=== PATIENT | male | born 1945 | race Caucasian/White ===

== ENCOUNTER 2016-11-27 19:24 | Observation (INO) | payer OTHER ==
[~2016-11-27] VITALS: Ht 157.5 cm; Wt 95.6 kg
[~2016-11-27 19:24] MED LIST: ADULT LOW DOSE81 M1 PO; ATENOLOL25 MG PO; DIOVAN80 MG PO; FOLTX TABLET1 EACH PO; INDOCIN50 MG PO; LASIX40 MG PO; LEXAPRO10 MG PO; NEXIUM40 MG PO; PLAVIX75 MG PO; ZONEGRAN100 MG PO
[2016-11-27 19:55] LABS: EOSINOPHIL (%) 1.4 % (0-5); EOSINOPHIL COUNT 0.1 K/uL (0-0.3); HEMATOCRIT 39.9 % (38.0-50.0); IMMATURE GRANULOCYTE (%) 0.2 % (0.0-0.7); INSTRUMENT ABS NEUTROPHIL CT 6.4 K/uL; LYMPHOCYTE COUNT 1.9 K/uL (1.0-2.8); MCH 29.4 PG (29.0-34.0); MCHC 34.8 G/DL (30.0-36.0); MCV 84.5 FL (86-99); MEAN PLAT.VOLUME 8.8 uM^3 (9.0-12.4); MONOCYTE (%) 4.5 % (3-12); MONOCYTE COUNT 0.4 K/uL (0-0.8); NEUTROPHIL (%) 72.6 % (45-76); NEUTROPHIL COUNT 6.4 K/uL (1.8-6.4); PLATELET COUNT 164 K/uL (156-360); RBC DIS.WIDTH-CV 13.1 % (11.8-14.6); RED BLOOD COUNT 4.72 M/uL (4.00-5.50); WHITE BLOOD COUNT 8.9 K/uL (4.1-10.2)
[2016-11-27 20:18] LABS: CHLORIDE 105 mEq/L (99-109); POTASSIUM 3.8 mEq/L (3.7-5.4); SODIUM 138 mEq/L (136-147)
[2016-11-27 20:19] LABS: GLUCOSE 163 mg/dL (70-99)
[2016-11-27 20:20] LABS: TROP-I INTERPRETATION NEGATIVE; TROPONIN-I 0.02 ng/mL (0.0-0.30)
[2016-11-27 20:21] LABS: ANION GAP 8 MEQ/L (2-14)
[2016-11-27 20:23] LABS: GFR ESTIMATE (CALCULATED) > 59 mL/min/
[2016-11-27 20:24] LABS: UREA NITROGEN (BUN) 15 mg/dL (9-23)
[2016-11-27] MEDS ORDERED: IMDUR60 MG PO (21:28)
[2016-11-27] MEDS ORDERED: COZAAR50 MG PO (21:28)
[2016-11-27] MEDS ORDERED: CRESTOR20 MG PO (21:28)
[2016-11-27] MEDS ORDERED: OMEGA-3 KRILL1 EAC1 PO (21:29)
[2016-11-27] MEDS ORDERED: METFORMIN HCL500 MG PO (21:29)
[2016-11-27] MEDS ORDERED: ALLOPURINOL100 MG PO (21:29)
[2016-11-27] MEDS ORDERED: JARDIANCE10 MG PO (21:30)
[2016-11-27 22:31] LABS: TOTAL BILIRUBIN 0.5 mg/dL (0.0-1.0)
[2016-11-27 22:32] LABS: ALKALINE PHOSPHATASE 48 IU/L (3-129)
[2016-11-27 22:35] LABS: DIRECT BILIRUBIN 0.2 mg/dL (0.0-0.3)
[2016-11-27 22:36] LABS: LIPASE 27 U/L (1.0-51.0)
[2016-11-27 23:57] VITALS: BP 122/64
[2016-11-28 03:11] LABS: MCH 29.2 PG (29.0-34.0); MCHC 34.5 G/DL (30.0-36.0); MCV 84.6 FL (86-99); MEAN PLAT.VOLUME 9.1 uM^3 (9.0-12.4); PLATELET COUNT 153 K/uL (156-360); RBC DIS.WIDTH-CV 13.1 % (11.8-14.6); RBC DIS.WIDTH-SD 40.6 % (39-53); RED BLOOD COUNT 4.49 M/uL (4.00-5.50); WHITE BLOOD COUNT 7.6 K/uL (4.1-10.2)
[2016-11-28 03:15] VITALS: BP 98/52
[2016-11-28 03:22] LABS: CHLORIDE 107 mEq/L (99-109); POTASSIUM 3.6 mEq/L (3.7-5.4); SODIUM 140 mEq/L (136-147)
[2016-11-28 03:23] LABS: GLUCOSE 161 mg/dL (70-99)
[2016-11-28 03:25] LABS: ANION GAP 8 MEQ/L (2-14)
[2016-11-28 03:27] LABS: GFR ESTIMATE (CALCULATED) > 59 mL/min/
[2016-11-28 03:28] LABS: UREA NITROGEN (BUN) 13 mg/dL (9-23)
[2016-11-28 03:33] LABS: TROP-I INTERPRETATION NEGATIVE; TROPONIN-I 0.02 ng/mL (0.0-0.30)
[2016-11-28 08:30] VITALS: BP 142/67
[2016-11-28 08:39] LABS: POINT-OF-CARE METER ID UU13113831
[2016-11-28 10:28] LABS: TROP-I INTERPRETATION NEGATIVE; TROPONIN-I 0.01 ng/mL (0.0-0.30)
[2016-11-28 11:39] LABS: POINT-OF-CARE METER ID UU13113700
[2016-11-28 12:04] VITALS: BP 90/49
== END 2016-11-28 14:10 | disposition home or self-care (01) ==
LOC: EME → EDBD 19:24 → 5WEST 21:47 → EDOF 21:47 → ENRESERV 21:49 → CANRESERV 22:03 → ENRESERV 22:03 → 5WEST 23:15
PROVIDERS: Emergency Medicine; Hospitalist
DX: I20.9 Angina pectoris, unspecified (principal); I10 Essential (primary) hypertension; E78.5 Hyperlipidemia, unspecified; I25.10 Atherosclerotic heart disease of native coronary artery without angina pectoris; Z95.1 Presence of aortocoronary bypass graft; Z95.5 Presence of coronary angioplasty implant and graft; I45.10 Unspecified right bundle-branch block; I25.5 Ischemic cardiomyopathy; E11.65 Type 2 diabetes mellitus with hyperglycemia; E66.9 Obesity, unspecified; Z68.38 Body mass index [BMI] 38.0-38.9, adult; Z87.11 Personal history of peptic ulcer disease; Z87.891 Personal history of nicotine dependence; Z82.49 Family history of ischemic heart disease and other diseases of the circulatory system; Z80.0 Family history of malignant neoplasm of digestive organs; Z80.3 Family history of malignant neoplasm of breast
CPT/HCPCS: 71010; 71275; 80048; 80076; 82948; 83690; 84484; 85025; 85027; 85379; 93005; 93970; 99281; 99285; G0378; J1650; J1815; J3010; J7040

== ENCOUNTER 2017-01-15 15:22 | Emergency (ER) | payer OTHER ==
[~2017-01-15] VITALS: Ht 157.5 cm; Wt 89.3 kg
[~2017-01-15 15:22] MED LIST changes: +ALLOPURINOL100 MG PO; +COZAAR50 MG PO; +CRESTOR20 MG PO; +IMDUR60 MG PO; +JARDIANCE10 MG PO; +METFORMIN HCL500 MG PO; +OMEGA-3 KRILL1 EAC1 PO
[2017-01-15 16:18] LABS: EOSINOPHIL (%) 1.7 % (0-5); EOSINOPHIL COUNT 0.1 K/uL (0-0.3); HEMATOCRIT 40.5 % (38.0-50.0); IMMATURE GRANULOCYTE (%) 0.4 % (0.0-0.7); INSTRUMENT ABS NEUTROPHIL CT 6.1 K/uL; LYMPHOCYTE COUNT 1.4 K/uL (1.0-2.8); MCH 29.4 PG (29.0-34.0); MCHC 34.1 G/DL (30.0-36.0); MCV 86.2 FL (86-99); MEAN PLAT.VOLUME 8.8 uM^3 (9.0-12.4); MONOCYTE (%) 8.1 % (3-12); MONOCYTE COUNT 0.7 K/uL (0-0.8); NEUTROPHIL (%) 73.2 % (45-76); NEUTROPHIL COUNT 6.1 K/uL (1.8-6.4); PLATELET COUNT 164 K/uL (156-360); RBC DIS.WIDTH-CV 13.2 % (11.8-14.6); RBC DIS.WIDTH-SD 41.5 % (39-53); WHITE BLOOD COUNT 8.3 K/uL (4.1-10.2)
[2017-01-15 16:23] LABS: INTER. NORMALIZED RATIO 1.1; PROTHROMBIN TIME 12.2 SEC (10.2-12.9)
[2017-01-15 16:25] LABS: CHLORIDE 108 mEq/L (99-109); POTASSIUM 3.9 mEq/L (3.7-5.4); SODIUM 140 mEq/L (136-147)
[2017-01-15 16:26] LABS: PTT 31.1 SEC (25-37)
[2017-01-15 16:27] LABS: GLUCOSE 115 mg/dL (70-99)
[2017-01-15 16:28] LABS: ANION GAP 8 MEQ/L (2-14)
[2017-01-15 16:31] LABS: GFR ESTIMATE (CALCULATED) > 59 mL/min/
[2017-01-15 16:32] LABS: UREA NITROGEN (BUN) 8 mg/dL (9-23)
[2017-01-15 16:38] LABS: TROP-I INTERPRETATION NEGATIVE; TROPONIN-I < 0.01 ng/mL (0.0-0.30)
[2017-01-15 18:00] VITALS: BP 147/88
[2017-01-15 19:39] LABS: TROP-I INTERPRETATION NEGATIVE; TROPONIN-I < 0.01 ng/mL (0.0-0.30)
[2017-01-15] MEDS ORDERED: PREDNISONE20 MG PO (19:43)
[2017-01-15] MEDS ORDERED: TESSALON PERLE100 MG PO (19:43)
== END 2017-01-15 19:53 | disposition home or self-care (01) ==
LOC: EME 15:22
PROVIDERS: Emergency Medicine
DX: J40 Bronchitis, not specified as acute or chronic (principal); J06.9 Acute upper respiratory infection, unspecified; R19.7 Diarrhea, unspecified; I10 Essential (primary) hypertension; E78.5 Hyperlipidemia, unspecified; Z86.718 Personal history of other venous thrombosis and embolism; Z79.01 Long term (current) use of anticoagulants; Z79.02 Long term (current) use of antithrombotics/antiplatelets; Z79.82 Long term (current) use of aspirin; Z95.1 Presence of aortocoronary bypass graft; Z95.5 Presence of coronary angioplasty implant and graft; Z72.0 Tobacco use
CPT/HCPCS: 71020; 80048; 83880; 84484; 85025; 85610; 85730; 93005; 99281; 99285; J7512

== ENCOUNTER 2017-01-17 05:14 | Emergency (ER) | payer OTHER ==
[~2017-01-17] VITALS: Ht 157.5 cm; Wt 94.2 kg
[~2017-01-17 05:14] MED LIST changes: +PREDNISONE20 MG PO; +TESSALON PERLE100 MG PO
[2017-01-17 06:34] LABS: EOSINOPHIL (%) 0.1 % (0-5); HEMATOCRIT 39.9 % (38.0-50.0); IMMATURE GRANULOCYTE (%) 0.4 % (0.0-0.7); IMMATURE GRANULOCYTE COUNT 0.1 K/uL; INSTRUMENT ABS NEUTROPHIL CT 14.6 K/uL; LYMPHOCYTE COUNT 1.4 K/uL (1.0-2.8); MCH 29.7 PG (29.0-34.0); MCHC 34.3 G/DL (30.0-36.0); MCV 86.4 FL (86-99); MEAN PLAT.VOLUME 9.1 uM^3 (9.0-12.4); MONOCYTE (%) 3.8 % (3-12); MONOCYTE COUNT 0.6 K/uL (0-0.8); NEUTROPHIL (%) 87.5 % (45-76); NEUTROPHIL COUNT 14.6 K/uL (1.8-6.4); PLATELET COUNT 196 K/uL (156-360); RBC DIS.WIDTH-CV 13.2 % (11.8-14.6); RBC DIS.WIDTH-SD 41.5 % (39-53); RED BLOOD COUNT 4.62 M/uL (4.00-5.50); WHITE BLOOD COUNT 16.6 K/uL (4.1-10.2)
[2017-01-17 06:42] LABS: CHLORIDE 108 mEq/L (99-109); POTASSIUM 3.3 mEq/L (3.7-5.4); SODIUM 139 mEq/L (136-147)
[2017-01-17 06:46] LABS: GLUCOSE 296 mg/dL (70-99)
[2017-01-17 06:47] LABS: ANION GAP 15 MEQ/L (2-14)
[2017-01-17 06:49] LABS: GFR ESTIMATE (CALCULATED) > 59 mL/min/
[2017-01-17 06:50] LABS: UREA NITROGEN (BUN) 13 mg/dL (9-23)
[2017-01-17] MEDS ORDERED: ZITHROMAX Z-PA250 MG PO (06:58)
[2017-01-17] MEDS ORDERED: TESSALON PERLE100 MG PO (07:01)
[2017-01-17] MEDS ORDERED: PREDNISONE50 MG PO (07:01)
[2017-01-17 07:41] VITALS: BP 142/70
== END 2017-01-17 07:50 | disposition left against medical advice (07) ==
LOC: EME 05:14
PROVIDERS: Emergency Medicine
DX: J20.9 Acute bronchitis, unspecified (principal); E87.6 Hypokalemia; I10 Essential (primary) hypertension; E78.5 Hyperlipidemia, unspecified; Z95.1 Presence of aortocoronary bypass graft; Z86.718 Personal history of other venous thrombosis and embolism; Z79.02 Long term (current) use of antithrombotics/antiplatelets; Z79.82 Long term (current) use of aspirin; Z72.0 Tobacco use; Z53.20 Procedure and treatment not carried out because of patient's decision for unspecified reasons
CPT/HCPCS: 80048; 85025; 93005; 94640; 99281; 99284

== ENCOUNTER 2017-07-04 17:29 | Observation (INO) | payer OTHER ==
[~2017-07-04] VITALS: Ht 157.5 cm; Wt 91.8 kg
[~2017-07-04 17:29] MED LIST changes: +PREDNISONE50 MG PO; +ZITHROMAX Z-PA250 MG PO
[2017-07-04 18:52] LABS: BASOPHIL (%) 0.3 % (0-1); EOSINOPHIL (%) 1.9 % (0-5); EOSINOPHIL COUNT 0.2 K/uL (0-0.3); HEMOGLOBIN 15.8 G/DL (12.5-16.6); IMMATURE GRANULOCYTE (%) 0.3 % (0.0-0.7); LYMPHOCYTE COUNT 1.9 K/uL (1.0-2.8); MCH 29.8 PG (29.0-34.0); MCHC 35.1 G/DL (30.0-36.0); MCV 84.7 FL (86-99); MONOCYTE (%) 5.6 % (3-12); MONOCYTE COUNT 0.5 K/uL (0-0.8); NEUTROPHIL (%) 70.9 % (45-76); NEUTROPHIL COUNT 6.5 K/uL (1.8-6.4); PLATELET COUNT 148 K/uL (156-360); RBC DIS.WIDTH-SD 39.6 % (39-53); RED BLOOD COUNT 5.31 M/uL (4.00-5.50); WHITE BLOOD COUNT 9.2 K/uL (4.1-10.2)
[2017-07-04 19:01] LABS: PTT 30.4 SEC (25-37)
[2017-07-04 19:10] LABS: CHLORIDE 106 mEq/L (99-109); POTASSIUM 5.5 mEq/L (3.7-5.4); SODIUM 139 mEq/L (136-147)
[2017-07-04 19:11] LABS: GLUCOSE 114 mg/dL (70-99)
[2017-07-04 19:15] LABS: CREATININE 1.1 mg/dL (0.6-1.3); GFR ESTIMATE (CALCULATED) > 59 mL/min/ (58.99-99999)
[2017-07-04 19:16] LABS: TROP-I INTERPRETATION NEGATIVE; TROPONIN-I < 0.01 ng/mL (0.0-0.30); UREA NITROGEN (BUN) 9 mg/dL (9-23)
[2017-07-04] MEDS ORDERED: NITROGLYCERIN0.4 MG SL (20:39)
[2017-07-04] MEDS ORDERED: ELIQUIS5 MG PO (20:41)
[2017-07-04] MEDS ORDERED: METFORMIN HCL500 M1 PO (20:42)
[2017-07-04] MEDS ORDERED: CLOPIDOGREL75 MG PO (20:43)
[2017-07-04] MEDS ORDERED: RANEXA500 MG PO (20:43)
[2017-07-04] MEDS ORDERED: FUROSEMIDE20 MG PO (20:44)
[2017-07-04] MEDS ORDERED: ESCITALOPRAM OX10 MG PO (20:44)
[2017-07-04] MEDS ORDERED: IMDUR30 MG PO (20:44)
[2017-07-04] MEDS ORDERED: LOSARTAN POTASS25 MG PO (20:44)
[2017-07-04] MEDS ORDERED: ROSUVASTATIN CA20 MG PO (20:44)
[2017-07-04] MEDS ORDERED: ESOMEPRAZOLE MA40 MG PO (20:45)
[2017-07-04 21:41] LABS: APPEARANCE CLEAR ((CLEAR)); BILIRUBIN NEGATIVE; BLOOD NEGATIVE; COLOR YELLOW ((YELLOW)); GLUCOSE (STRIP) NEGATIVE; KETONES NEGATIVE; LEUKOCYTES NEGATIVE; NITRITE NEGATIVE; PROTEIN (STRIP) NEGATIVE; SPECIFIC GRAVITY 1.019 (1.000-1.030); UCUL ADDED? NO; UROBILINOGEN 0.2 MG/DL (0.2-1.0)
[2017-07-04 22:31] VITALS: BP 133/66
[2017-07-05 00:27] VITALS: BP 112/63
[2017-07-05 04:39] VITALS: BP 103/53
[2017-07-05 06:28] LABS: HEMATOCRIT 41.4 % (38.0-50.0); HEMOGLOBIN 13.9 G/DL (12.5-16.6); MCH 28.8 PG (29.0-34.0); MCHC 33.6 G/DL (30.0-36.0); MCV 85.9 FL (86-99); PLATELET COUNT 173 K/uL (156-360); RBC DIS.WIDTH-CV 12.9 % (11.8-14.6); RBC DIS.WIDTH-SD 39.8 % (39-53); RED BLOOD COUNT 4.82 M/uL (4.00-5.50); WHITE BLOOD COUNT 8.3 K/uL (4.1-10.2)
[2017-07-05 08:05] VITALS: BP 134/71
[2017-07-05] MEDS ORDERED: PRAVASTATIN SOD40 MG PO (10:48)
[2017-07-05 11:25] LABS: HDL CHOLESTEROL 31 MG/DL (Desirable>=40); LDL CHOLESTEROL 131 mg/dL (Desirable<100); NON-HDL CHOLESTEROL 168 mg/dL (Desirable<160); TOTAL CHOLESTEROL 199 mg/dL (Desirable<200); TRIGLYCERIDES 187 MG/DL (Normal: <150)
[2017-07-05 11:47] VITALS: BP 103/56
[2017-07-06 09:11] LABS: HEMOGLOBIN A1c (GLYCOHEMOGLOB) 6.7 % (Below 5.7)
== END 2017-07-05 15:21 | disposition home or self-care (01) ==
LOC: DELPENDDIS → EME 17:29 → EDOF 21:37 → ENRESERV 21:39 → 5WEST 22:19 → ENPENDDIS 07-05 → 5WEST 07-05 15:21
PROVIDERS: Emergency Medicine; Hospitalist; Nurse Practitioner Adult Health
DX: G45.9 Transient cerebral ischemic attack, unspecified (principal); E87.5 Hyperkalemia; I10 Essential (primary) hypertension; E11.9 Type 2 diabetes mellitus without complications; E78.5 Hyperlipidemia, unspecified; I25.10 Atherosclerotic heart disease of native coronary artery without angina pectoris; I25.2 Old myocardial infarction; J43.9 Emphysema, unspecified; Z86.73 Personal history of transient ischemic attack (TIA), and cerebral infarction without residual deficits; K21.9 Gastro-esophageal reflux disease without esophagitis; Z87.19 Personal history of other diseases of the digestive system; F32.9 Major depressive disorder, single episode, unspecified; Z87.442 Personal history of urinary calculi; Z90.49 Acquired absence of other specified parts of digestive tract; Z95.1 Presence of aortocoronary bypass graft; Z95.5 Presence of coronary angioplasty implant and graft; Z82.49 Family history of ischemic heart disease and other diseases of the circulatory system; F17.200 Nicotine dependence, unspecified, uncomplicated; Z86.718 Personal history of other venous thrombosis and embolism; Z79.84 Long term (current) use of oral hypoglycemic drugs; Z79.82 Long term (current) use of aspirin; Z79.02 Long term (current) use of antithrombotics/antiplatelets
CPT/HCPCS: 70450; 80048; 80061; 81003; 82948; 83036; 83605; 84132; 84484; 85025; 85027; 85610; 85730; 87641; 93005; 93880; 99281; 99285; G0378